=== PATIENT | female | born 2000 | race African-American/Black ===

== ENCOUNTER 2025-01-11 16:28 | Emergency (ER) | payer OTHER, SELFPAY ==
[2025-01-11 16:33] VITALS: BP 121/81; PULSE 78; RESP 18; TEMP 35.9; O2SAT 100; BMI 35.9
--- NOTE | 2025-01-11 17:55 | ED.VIS.GI ---
HPI HPI - GI History of Present Illness Chief Complaint: Abd Pain Informant: patient and other ([employer]. Patient speaks Creole) Abdominal Pain/Flank Pain Onset: Month(s) Context: Gradual Onset Timing: Intermittent Quality: Cramping Location: - (Periumbilical.) Current Severity: Mild Maximum Severity: Mild Worsened by: Nothing Relieved by: Nothing Nausea/Vomiting/Emesis GI Symptom: Positive for Nausea and Vomiting Onset: Yesterday Severity: Mild Diarrhea/Melena/Hematochezia GI Symptom: Negative for Diarrhea, Melena or Hematochezia Associated Symptoms Associated Symptoms: Negative for Dysuria, Frequency, Hematuria or Urgency Narrative Narrative: 24-year-old female no primary care physician. Is from [facility]. Denies any past medical or surgical history. G1, P1 Ab0. States she has had periumbilical abdominal pain off and on for 2 months. Nothing specifically brings it on or makes it go away. At times she will take ibuprofen which improves the pain. She has had no weight loss. Denies any dysuria. Intermittent nausea vomiting. No melena. No fever. Recent Illness/Hospitalization: No PFSH PFSH Medical History no medical history no medical history Home Medications ?Medication ?Instructions ?Recorded ?Last Taken ?Type NK 01/11/25 Unknown History Allergy/AdvReac Type Severity Reaction Status Date / Time No Known Allergies Allergy Verified 01/11/25 16:33 Surgical History no surgical history no surgical history Social History Smoking Status: Never smoker ROS ROS ED ROS Narrative Abdominal pain. Nausea vomiting. Constitutional Constitutional ED: Denies chills or fever(s) ENT ENT ED: Denies ear pain Cardiovascular Cardiovascular: Denies chest pain Respiratory/Chest Respiratory/Chest: Denies cough Gastrointestinal Gastrointestinal: Reports abdominal pain, nausea and vomiting; Denies constipation, diarrhea or melena Genitourinary Genitourinary ED: Denies dysuria or hematuria Musculoskeletal Musculoskeletal: Denies arthralgias or back pain Integumentary Denies abscess or Abrasions Neurologic Neurologic: Denies headache(s) Psychiatric Psychiatric: Denies anxiety Endocrine Endocrinology: Denies polydipsia Hematologic/Lymphatic Hematologic/Lymphatic: Denies easy bleeding Allergic/Immunologic Allergic/Immunologic ED: Denies mouth swelling, tongue swelling or urticaria EXAM Physical Exam Narrative Exam Narrative: Well-appearing 24-year-old female. Vital signs are stable afebrile. H EENT exam pupils round reactive light. Moist mucous membranes. Neck nontender no lymphadenopathy. Lungs clear to auscultation bilaterally. Heart regular rhythm rate about 80 no murmur. Chest wall ribs nontender. Abdomen soft nontender, nondistended normal bowel sounds without peritoneal signs. Completely nontender abdomen. She points to the periumbilical area where she is having the discomfort. There is no reproducible pain there anywhere else on the abdomen. No signs of trauma. No hernia or mass. Moving all 4 extremities. Nontender. Normal range of motion. Normal strength. Back nontender. Neurologically she is awake and alert. She is in absolutely no distress. [employer] phone was used to obtain a history. Const Vital Signs: 01/11/25 16:33 01/11/25 18:28 Temperature 96.7 F L Temperature Source Temporal Pulse Rate 78 78 Respiratory Rate 18 18 Blood Pressure 121/81 H 125/76 H Blood Pressure Mean 94 92 Pulse Ox 100 99 Oxygen Delivery Method Room Air Room Air Positive well nourished and well developed; Negative for cachectic, contractures or unkempt General Appearance ED: well developed; Negative for unkempt, cachectic, contractures or pallor Nutritional Appearance: Negative for cachectic HEENT Reports moist mucous membranes normocephalic and atraumatic Eyes PERRL and EOMs intact bilaterally General Eye ED: Negative for pale conjunctiva or scleral icterus Neck no lymphadenopathy, supple and no JVD Resp normal respiratory effort and clear to auscultation bilaterally Cardio regular rhythm, S1 normal heart sound, S2 normal heart sound and no murmurs GI non-tender, non-distended and no masses Inspection: Negative for abdominal distention Palpation: soft; Negative for tender, guarding, rigid, hepatomegaly, splenomegaly, hernia, mass, pulsatile mass or rebound tenderness present Back/Spine no CVA tenderness Extremity full ROM General Extremety ED: Negative for edema or tenderness General Extremity: Negative for edema Neuro CN's II-XII intact bilaterally and moves all extremities Sensorium / Orientation: alert, oriented to person, oriented to place and oriented to time; Negative for orientation impaired Motor Exam: strength 5/5 throughout Psych mental status grossly normal and thought process normal Appearance: Negative for unkempt Mood & Affect: Negative for anxious or tearful Skin no wounds General Skin Exam: Negative for jaundice or pallor Lesions: no lesions Rashes: no rashes Trauma: Negative for abrasion Nails: Negative for discolored MDM MDM MDM Narrative Medical decision making narrative: 24-year-old female 2-month history of abdominal pain. Exam is completely benign. Abdomen is nontender. Screening labs to be obtained. I do not think she needs imaging. Repeat exam at 8:28 PM. Abdomen is benign. I went over her test with her. She will be discharged home with outpatient follow-up. She has a very benign abdominal exam. There is no localizing or significant reproducible pain. Outpatient follow-up. She does not need any imaging at this time. History & Record Review Discussion w/independent historian: Patient Additional record(s) reviewed:: No prior records Lab Data Attestation: I reviewed the patient's lab results. Lab results narrative: CBC unremarkable. White count of 5. H&H 12 and 38. Electrolytes show sodium 139. Gap 10. BUN is 7 creatinine 0.6. Glucose 81. Liver enzymes AST slightly elevated at 50. ALT is 61. Serum test is negative. UA shows no nitrites. No signs of infection. No white or red cells. No bacteria. Labs: Laboratory Results - last 24 hr 01/11/25 18:00 WBC 5.4 RBC 4.43 Hgb 12.8 Hct 38.6 MCV 87.1 MCH 28.9 MCHC 33.2 RDW Std Deviation 45.5 H RDW Coeff of Lazaro 14.3 Plt Count 251 MPV 11.4 Immature Gran % (Auto) 0.400 Neut % (Auto) 43.4 L Lymph % (Auto) 44.5 H [place]ven % (Auto) 8.7 Eos % (Auto) 2.6 Baso % (Auto) 0.4 Absolute Neuts (auto) 2.4 Absolute Lymphs (auto) 2.41 Nucleated RBC % 0 Sodium 139 Potassium 3.7 Chloride 104 Carbon Dioxide 25.5 Anion Gap 10 BUN 7 Creatinine 0.60 L Estim Creat Clear Calc 178.86 Est GFR (MDRD) Non-Af 130 BUN/Creatinine Ratio 11.8 Glucose 81 Calcium 9.6 Total Bilirubin 0.76 AST 50 H ALT 61 H Alkaline Phosphatase 98 Total Protein 7.4 Albumin 4.3 Globulin 3.2 Albumin/Globulin Ratio 1.3 Lipase 21 Serum , Qual NEGATIVE Urine Color Yellow Urine Clarity Clear Urine pH 7.0 Ur Specific [place] 1.010 Urine Protein 30 H Urine Glucose (UA) Normal Urine Ketones Negative Urine Occult Blood Negative Urine Nitrite Negative Urine Bilirubin Negative Urine Urobilinogen 1 H Ur Leukocyte Esterase 25 H Urine RBC 0-5 SEEN Urine WBC 0-5 SEEN Ur Squamous Epith Cells 5-10 SEEN Urine Bacteria 0 SEEN Urine Mucus 0 SEEN Discharge Plan Triage Chief Complaint: Abd Pain ED Provider: Leland Farah Dx/Rx/DC Orders Clinical Impression: Abdominal pain Instructions: Abdominal Pain Prescriptions: No Action NK Primary Care Provider: Care Physician,No Primary Referrals: Care Physician,No Primary [Primary Care Provider] - Chantelle Ross Janene, H[employer] WORKER-[employer] [[facility]] - As soon as possible Activity Restrictions/Additional Instructions: Follow-up for further evaluation. Your labs tonight are unremarkable. Tylenol for pain. Return if increasing pain, fever, intractable vomiting or feeling worse. Print Language: Ecuad[place] Creole Disposition Disposition: Home, Self Care
[2025-01-11 18:09] LABS: Bacteria 0 SEEN /hpf (None Seen); Mucous, Urine 0 SEEN /hpf (<or=2+)
[2025-01-11 18:12] LABS: Glucose, Dipstick Normal (Normal); Ketone-Dipstick Negative (Negative); Leukocyte Esterase-Dipstick 25 /ul (Negative); Nitrite-Dipstick Negative (Negative); Occult Blood-Urine Negative /ul (Negative); Protein-Dipstick 30 mg/dl (Negative); Urine Bilirubin Dipstick Negative (Negative); Urine Urobilinogen 1 mg/dl (Normal)
[2025-01-11 18:15] LABS: Color, Urine Yellow (Yellow); Urine Clarity Clear (Clear)
[2025-01-11 18:28] VITALS: BP 125/76; PULSE 78; RESP 18; O2SAT 99
[2025-01-11 18:47] LABS: ALB/GLOB Ratio 1.3 RATIO (0.9-2.4); AST(SGOT) 50 U/L (<=31); Alanine Aminotransfer ALT/SGPT 61 U/L (<=34); Albumin, Serum 4.3 g/dL (3.5-5.0); Alkaline Phosphatase 98 U/L (35-104); Anion Gap 10 (5-15); BUN 7 mg/dL (4-19); BUN/Creat Ratio 11.8 RATIO (10-20); Calcium,Total 9.6 mg/dL (7.6-11.0); Carbon Dioxide 25.5 mmol/L (21.0-32.0); Chloride 104 mmol/L (98-108); EST Glomerular Filtration Rate 130 (>60); Estimated Creatinine Clearance 178.86 ml/min (50-250); Globulin 3.2 g/dL (2.2-4.2); Glucose 81 mg/dL (70-99); Lipase 21 U/L (13-75); Potassium 3.7 mmol/L (3.3-5.1); Protein, Total 7.4 g/dL (5.9-8.4); Sodium Level 139 mmol/L (133-145); Total Bilirubin 0.76 mg/dL (0.00-1.30)
[2025-01-11 19:02] LABS: Absolute Lymphocyte Count 2.41 X10^3/uL (0.83-4.51); Absolute Neutrophil Count 2.4 X10^3/uL (2.0-7.7); Basophil# 0.02 X10^3/uL; Basophil% 0.4 % (0-1); Eosinophil# 0.14 X10^3/uL; Eosinophils% 2.6 % (0-5); Hematocrit 38.6 % (37-47); Hemoglobin 12.8 g/dL (12.0-15.0); Lymphocyte # 2.41 X10^3/ul (0.83-4.51); Lymphocyte % 44.5 % (19-41); Mean Corp Hgb Conc 33.2 g/dL (32-36); Mean Corpuscular Hgb 28.9 pg (27.0-32.0); Mean Corpuscular Volume 87.1 fL (81-99); Mean Platelet Vol. 11.4 fl (6.2-12.0); Monocyte# 0.47 X10^3/uL; Monocyte% 8.7 % (0-10); NRBC Flagged by Analyzer 0 % (0-5); Neutrophil # 2.36 X10^3/uL (2.7-7.7); Neutrophil % 43.4 % (47-70); Platelet Count 251 K/mm3 (150-450); RBC Distribution Width CV 14.3 % (11.6-14.6); RBC Distribution Width SD 45.5 fl (35.1-43.9); Red Blood Count 4.43 M/mm3 (4.2-5.4); White Blood Count 5.4 K/mm3 (4.4-11.0)
[2025-01-11 19:10] LABS: Internal QC Validated? YES +Cl - CLEAR BKGD; Pregnancy, Serum, hCG Quali. NEGATIVE Negative; Record Kit Lot#, Serum Preg. 947241
[2025-01-11 20:00] VITALS: BP 103/91; PULSE 82; RESP 18; O2SAT 100
[2025-01-11 20:04] LABS: Red Blood Cells-Urine 0-5 SEEN /hpf (0-5); Squamous Epithelial Cells - UA 5-10 SEEN /hpf (5-10); White Blood Cells 0-5 SEEN /hpf (0-5)
[2025-01-11 20:52] VITALS: BP 103/81; PULSE 72; RESP 16; O2SAT 97
== END 2025-01-11 20:53 | disposition home or self-care (01) ==
PROVIDERS: Emergency Provider Emergency Medicine; Visit Provider Emergency Medicine
DX: R10.33 Periumbilical pain (principal)
CPT/HCPCS: 80053; 81001; 83690; 84703; 85025; 99283; A4216

== ENCOUNTER 2025-01-28 13:40 | Emergency (ER) | payer OTHER, SELFPAY ==
[2025-01-28 13:41] VITALS: BP 131/92; PULSE 76; RESP 16; TEMP 37; O2SAT 100; BMI 36.9
--- OUTSIDE RECORDS SUMMARY | 2025-01-28 14:44 | XMS RPT_ITS | CCD ---
Author Organization [facility] Care Team Providers Care Scratcher Name Role Phone Gagan PHILLIP, Dr. Ha Emergency Provider Care Physician, No Primary Primary Care Provider Unavailable Leland Farah Attending Unavailable Care Physician, No Primary Primary Care Unava ilable Problems Problem Classification Problem Date Documented Da te Episodic/Chronic Abdominal pain (2 sources) Abdominal pain; Translations: [Unspecified abdominal pain] Onset: 01-17-2025 01-11-2025 Episodic Results Test Name Value Interpretation Reference Range Facility Absolute lymphocyte countOrd ered By: Leland Farah on 01-11-2025 Lymphocytes Auto (Unsp spec) [#/Vol] 2.41 10*3/uL 0.83-4.51 [facility] Absolute neutrophil countOrd ered By: Leland Farah on 01-11-2025 Neutrophils (Bld) [#/Vol] 2.4 10*3/uL 2.0-7.7 [facility] Anion gap in Serum or Plasma Ordered By: Leland Farah on 01-11-2025 Anion gap [Moles/Vol] 10 mmol/L 5-15 [facility] Automated blood erythrocyte countOrdered By: Leland Farah on 01-11-2025 RBC (Bld) [#/Vol] 4.43 10*6/uL Normal 4.2-5.4 [facility] Comment on above: Performed By: #### L 700.6800, L500.4050, L501.2450, L100.0100 #### [facility] [address] [place], [place], [id number] Automated blood hematocrit ( percentage)Ordered By: Leland Farah on 01-11-2025 Hematocrit (Bld) [Volume fraction] 38.6 % Normal 37-47 [facility] Comment on above: Performed By: #### L 700.6800, L500.4050, L501.2450, L100.0100 #### [facility] [address] [place], [address] Automated lymphocyte count a s percentage of total leukocytesOrdered By: Leland Farah on 01-11-2025 Lymphocytes/100 WBC Auto (Unsp spec) 44.5 % High 19-41 [facility] BUN/creatinine ratioOrdered By: Leland Farah on 01-11-2025 Urea nitrogen/Creatinine [Mass ratio] 11.8 mg/mg 10-20 [facility] Basophil percentageOrdered B y: Leland Farah on 01-11-2025 Basophils/100 WBC (Bld) 0.4 % Normal 0-1 [facility] Comment on above: Performed By: #### L 700.6800, L500.4050, L501.2450, L100.0100 #### [facility] [address] [place], [place], [id number] Bilirubin Test strip Ql (U)O rdered By: Leland Farah on 01-11-2025 Bilirubin Ql (U) Negative Negative [facility] Bilirubin, totalOrdered By: Leland Farah on 01-11-2025 Bilirubin [Mass/Vol] 0.76 mg/dL Normal 0.00-1.30 [facility] Comment on above: Performed By: #### L 700.6800, L500.4050, L501.2450, L100.0100 #### [facility] [address] [place], [address] CBC W/Diff, Automatedon 06-0 Absolute Lymph 2.41 X10 3/uL Normal 0.83-4.51 [facility] Comment on above: Performed By: #### L 700.6800, L500.4050, L501.2450, L100.0100 #### [facility] [address] [place], [address] Absolute Neut 2.4 X10 3/uL Normal 2.0-7.7 [facility] Comment on above: Performed By: #### L 700.6800, L500.4050, L501.2450, L100.0100 #### [facility] [address] [place], [address] IG% 0.400 Normal 0.0-0.9 [facility] Comment on above: Result Comment: IG% - Immature Granulocytes (promyelocytes, myelocytes and metamyelocytes) > 1% indicates that a LEFT SHIFT is Present. Performed By: #### L 700.6800, L500.4050, L501.2450, L100.0100 #### [facility] [address] [place], [address] Lymphocytes/100 WBC (Bld) 44.5 % High 19-41 [facility] Comment on above: Performed By: #### L 700.6800, L500.4050, L501.2450, L100.0100 #### [facility] [address] [place], [address] Nucleated RBC (Bld) [#/Vol] 0 10*3/uL Normal 0-5 [facility] Comment on above: Performed By: #### L 700.6800, L500.4050, L501.2450, L100.0100 #### [facility] [address] [place], [address] RDW SD 45.5 fl High 35.1-43.9 [facility] Comment on above: Performed By: #### L 700.6800, L500.4050, L501.2450, L100.0100 #### [facility] [address] [place], [address] Carbon dioxide, total [Moles /volume] in Central venous bloodOrdered By: Leland Farah on 01-11-2025 CO2 [Moles/Vol] 25.5 mmol/L Normal 21.0-32.0 [facility] Comment on above: Performed By: #### L 700.6800, L500.4050, L501.2450, L100.0100 #### [facility] [address] [place], [address] Chloride assayOrdered By: Marlo Farah on 01-11-2025 Chloride [Moles/Vol] 104 mmol/L Normal 98-108 [facility] Comment on above: Performed By: #### L 700.6800, L500.4050, L501.2450, L100.0100 #### [facility] [address] [place], [address] Comprehensive Metabolic Prof ilon 01-11-2025 ALK PHOS 98 U/L Normal 35-104 [facility] Comment on above: Performed By: #### L 700.6800, L500.4050, L501.2450, L100.0100 #### [facility] [address] [place], [address] BUN/CRE 11.8 RATIO Normal 10-20 [facility] Comment on above: Performed By: #### L 700.6800, L500.4050, L501.2450, L100.0100 #### [facility] [address] [place], [address] ECRCL 178.86 ml/min Normal 50-250 [facility] Comment on above: Performed By: #### L 700.6800, L500.4050, L501.2450, L100.0100 #### [facility] [address] [place], [address] GAP 10 Normal 5-15 [facility] Comment on above: Performed By: #### L 700.6800, L500.4050, L501.2450, L100.0100 #### [facility] [address] [place], [address] Potassium [Moles/Vol] 3.7 mmol/L Normal 3.3-5.1 [facility] Comment on above: Performed By: #### L 700.6800, L500.4050, L501.2450, L100.0100 #### [facility] [address] [place], [address] T PROT 7.4 g/dL Normal 5.9-8.4 [facility] Comment on above: Performed By: #### L 700.6800, L500.4050, L501.2450, L100.0100 #### [facility] [address] [place], [address] Comprehensive Metabolic Prof ilOrdered By: Leland Farah on 01-11-2025 AST [Catalytic activity/Vol] 50 U/L High <=31 [facility] Comment on above: Performed By: #### L 700.6800, L500.4050, L501.2450, L100.0100 #### [facility] [address] [place], [address] Emergency Department Summary on 01-11-2025 Emergency Department Summary [facility] Medical Records Department [address] [place] [address] Emergency Department Summary 01/11/25 MR#: [id number] Acct: [id number] Name: CROW QUARLES Rep #: [id number] : 2000 24 From: Leland Farah MD PCP: Care Physician,No Primary Status:DEP ER Location: ED HPI HPI - GI History of Present Illness Chief Complaint: Abd Pain Informant: patient and other ([employer]. Patient speaks Creole) Abdominal Pain/Flank Pain Onset: Month(s) Context: Gradual Onset Timing: Intermittent Quality: Cramping Location: - (Periumbilical.) Current Severity: Mild Maximum Severity: Mild Worsened by: Nothing Relieved by: Nothing Nausea/Vomiting/Em esis GI Symptom: Positive for Nausea and Vomiting Onset: Yesterday Severity: Mild Diarrhea/Melena/He matochezia GI Symptom: Negative for Diarrhea, Melena or Hematochezia Associated Symptoms Associated Symptoms: Negative for Dysuria, Frequency, Hematuria or Urgency Narrative Narrative: 24-year-old female no primary care physician. Is from [facility]. Denies any past medical or surgical history. G1, P1 Ab0. States she has had periumbilical abdominal pain off and on for 2 months. Nothing specifically brings it on or makes it go away. At times she will take ibuprofen which improves the pain. She has had no weight loss. Denies any dysuria. Intermittent nausea vomiting. No melena. No fever. Recent Illness/Hospitaliz ation: No PFSH PFSH Medical History no medical history no medical history Home Medications ???Medication ???Instructions ???Recorded ???Last Taken ???Type NK 01/11/25 Unknown History Allergy/AdvReac Type Severity Reaction Status Date / Time No Known Allergies Allergy Verified 01/11/25 16:33 Surgical History no surgical history no surgical history Social History Smoking Status: Never smoker ROS ROS ED ROS Narrative Abdominal pain. Nausea vomiting. Constitutional Constitutional ED: Denies chills or fever(s) ENT ENT ED: Denies ear pain Cardiovascular Cardiovascular: Denies chest pain Respiratory/Chest Respiratory/Chest: Denies cough Gastrointestinal Gastrointestinal: Reports abdominal pain, nausea and vomiting; Denies constipation, diarrhea or melena Genitourinary Genitourinary ED: Denies dysuria or hematuria Musculoskeletal Musculoskeletal: Denies arthralgias or back pain Integumentary Denies abscess or Abrasions Neurologic Neurologic: Denies headache(s) Psychiatric Psychiatric: Denies anxiety Endocrine Endocrinology: Denies polydipsia Hematologic/Lympha tic Hematologic/Lympha tic: Denies easy bleeding Allergic/Immunolog ic Allergic/Immunolog ic ED: Denies mouth swelling, tongue swelling or urticaria EXAM Physical Exam Narrative Exam Narrative: Well-appearing 24-year-old female. Vital signs are stable afebrile. H EENT exam pupils round reactive light. Moist mucous membranes. Neck nontender no lymphadenopathy. Lungs clear to auscultation bilaterally. Heart regular rhythm rate about 80 no murmur. Chest wall ribs nontender. Abdomen soft nontender, nondistended normal bowel sounds without peritoneal signs. Completely nontender abdomen. She points to the periumbilical area where she is having the discomfort. There is no reproducible pain there anywhere else on the abdomen. No signs of trauma. No hernia or mass. Moving all 4 extremities. Nontender. Normal range of motion. Normal strength. Back nontender. Neurologically she is awake and alert. She is in absolutely no distress. [employer] phone was used to obtain a history. Const Vital Signs: 01/11/25 16:33 01/11/25 18:28 Temperature 96.7 F L Temperature Source Temporal Pulse Rate 78 78 Respiratory Rate 18 18 Blood Pressure 121/81 H 125/76 H Blood Pressure Mean 94 92 Pulse Ox 100 99 Oxygen Delivery Method Room Air Room Air Positive well nourished and well developed; Negative for cachectic, contractures or unkempt General Appearance ED: well developed; Negative for unkempt, cachectic, contractures or pallor Nutritional Appearance: Negative for cachectic HEENT Reports moist mucous membranes normocephalic and atraumatic Eyes PERRL and EOMs intact bilaterally General Eye ED: Negative for pale conjunctiva or scleral icterus Neck no lymphadenopathy, supple and no JVD Resp normal respiratory effort and clear to auscultation bilaterally Cardio regular rhythm, S1 normal heart sound, S2 normal heart sound and no murmurs GI non-tender, non-distended and no masses Inspection: Negative for abdominal distention Palpation: soft; Negative for tender, guarding, rigid, hepatomegaly, splenomegaly, hernia, mass, pulsatile mass or rebound tenderness present Back/Spine no CVA tenderness Extremity ful (more content not included)... Normal [facility] Eosinophil percentageOrdered By: Leland Farah on 01-11-2025 Eosinophils/100 WBC (Bld) 2.6 % Normal 0-5 [facility] Comment on above: Performed By: #### L 700.6800, L500.4050, L501.2450, L100.0100 #### [facility] [place], [address] Erythrocyte distribution wid th ratioOrdered By: Leland Farah on 01-11-2025 Erythrocyte distribution width (RBC) [Ratio] 14.3 % Normal 11.6-14.6 [facility] Comment on above: Performed By: #### L 700.6800, L500.4050, L501.2450, L100.0100 #### [facility] [address], [place], [id number] Erythrocyte distribution wid th standard deviationOrdered By: Leland Farah on 01-11-2025 Erythrocyte distribution width (RBC) [Ratio] 45.5 fl High 35.1-43.9 [facility] Glomerular filtration rate ( GFR) estimation/1.73 sq m using serum, plasma, or whole bOrdered By: Leland Farah on 01-11-2025 GFR/1.73 sq M.predicted among non-blacks MDRD (S/P/Bld) [Vol rate/Area] 130 mL/min/{1.73_m2} Normal >60 [facility] Comment on above: mL/min/1.73m2 CKD-EP I Creatinine Equation (2020) Result Comment: mL/m in/1.73m2 CKD-EPI Creatinine Equation (2020) Performed By: #### L 700.6800, L500.4050, L501.2450, L100.0100 #### [facility] [address] [place], [address] Hemoglobin measurementOrdere d By: Leland Farah on 01-11-2025 Hemoglobin (Bld) [Mass/Vol] 12.8 g/dL Normal 12.0-15.0 [facility] Comment on above: Performed By: #### L 700.6800, L500.4050, L501.2450, L100.0100 #### [facility] [address] [place], [address] Immature granulocytes/100 WB C Auto (Bld)Ordered By: Leland Farah on 01-11-2025 Immature granulocytes/100 WBC (Bld) 0.400 % 0.0-0.9 [facility] Comment on above: IG% - Immature Granu locytes (promyelocytes, myelocytes and metamyelocytes) > 1% indicates that a LEFT SHIFT is Present. Ketones Test strip Ql (U)Ord ered By: Leland Farah on 01-11-2025 Ketones Ql (U) Negative Negative [facility] Lipase measurementOrdered By : Leland Farah on 01-11-2025 Lipase [Catalytic activity/Vol] 21 U/L Normal 13-75 [facility] Comment on above: Please note:LIPASE r evised reference range effective 22. New Lipase methodology. Expected to produce lower values than the previous assay method. NEW Reference Range: 13 - 75 U/L Result Comment: Leanna peterson note: LIPASE revised reference range effective 22. New Lipase methodology. Expected to produce lower values than the previous assay method. NEW Reference Range: 13 - 75 U/L Performed By: #### L 700.6800, L500.4050, L501.2450, L100.0100 #### [facility] [address] [place], [address] MCV (mean corpuscular volume ) determinationOrdered By: Leland Farah on 01-11-2025 MCV (RBC) [Entitic vol] 87.1 fL Normal 81-99 [facility] Comment on above: Performed By: #### L 700.6800, L500.4050, L501.2450, L100.0100 #### [facility] [address] [place], [address] Mean corpuscular hemoglobin (MCH) determinationOrdered By: Leland Farah on 01-11-2025 MCH (RBC) [Entitic mass] 28.9 pg Normal 27.0-32.0 [facility] Comment on above: Performed By: #### L 700.6800, L500.4050, L501.2450, L100.0100 #### [facility] [address] [place], [address] Mean corpuscular hemoglobin concentration (MCHC) determinationOrdered By: Leland Farah on 01-11-2025 MCHC (RBC) [Mass/Vol] 33.2 g/dL Normal 32-36 [facility] Comment on above: Performed By: #### L 700.6800, L500.4050, L501.2450, L100.0100 #### [facility] [address] [place], [address] Mean platelet volume determi nationOrdered By: Leland Farah on 01-11-2025 Platelet mean volume (Bld) [Entitic vol] 11.4 fL Normal 6.2-12.0 [facility] Comment on above: Performed By: #### L 700.6800, L500.4050, L501.2450, L100.0100 #### [facility] [address] [place], [address] Microscopic analysis of urin e for red blood cells (RBC)Ordered By: Leland Farah on 01-11-2025 Microscopic analysis of urine for red blood cells (RBC) 0-5 SEEN /hpf 0-5 [facility] Monocyte percentageOrdered B y: Leland Farah on 01-11-2025 Monocytes/100 WBC (Bld) 8.7 % Normal 0-10 [facility] Comment on above: Performed By: #### L 700.6800, L500.4050, L501.2450, L100.0100 #### [facility] [address] [place], [place], [id number] Mucus LM Ql (Urine sed)Order ed By: Leland Farah on 01-11-2025 Mucus Ql (Urine sed) 0 SEEN /hpf [facility] Neutrophil percentageOrdered By: Leland Farah on 01-11-2025 Neutrophils/100 WBC (Bld) 43.4 % Low 47-70 [facility] Comment on above: Performed By: #### L 700.6800, L500.4050, L501.2450, L100.0100 #### [facility] [address] [place], [address] Nitrite Test strip Ql (U)Ord ered By: Leland Farah on 01-11-2025 Nitrite Ql (U) Negative Negative [facility] Nucleated red blood cell per centageOrdered By: Leland Farah on 01-11-2025 Nucleated RBC/100 WBC (Bld) [Ratio] 0 % 0-5 [facility] Platelet countOrdered By: Marlo Farah on 01-11-2025 Platelets (Bld) [#/Vol] 251 10*3/uL Normal 150-450 [facility] Comment on above: Performed By: #### L 700.6800, L500.4050, L501.2450, L100.0100 #### [facility] [address] [place], [address] Potassium measurement (mass/ volume)Ordered By: Leland Farah on 01-11-2025 Potassium (Unsp spec) [Mass/Vol] 3.7 mmol/L 3.3-5.1 [facility] ,Serum,hCG Quali.on 01-11-2025 HCG, SERUM QUAL Negative Normal [facility] Comment on above: Performed By: #### L 700.6800, L500.4050, L501.2450, L100.0100 #### [facility] [address] [place], [address] Protein Test strip Ql (U)Ord ered By: Leland Farah on 01-11-2025 Protein Ql (U) 30 mg/dl High Negative [facility] Serum beta-hCG test, qualita tiveOrdered By: Leland Farah on 01-11-2025 Beta HCG ( test) Ql Negative [facility] Serum creatinine measurement (mass/volume)Ordered By: Leland Farah on 01-11-2025 Creatinine [Mass/Vol] 0.60 mg/dL Low 0.70-1.20 [facility] Comment on above: Performed By: #### L 700.6800, L500.4050, L501.2450, L100.0100 #### [facility] [address] [place], [address] Serum globulin measurementOr dered By: Leland Farah on 01-11-2025 Globulin (S) [Mass/Vol] 3.2 g/dL Normal 2.2-4.2 [facility] Comment on above: Performed By: #### L 700.6800, L500.4050, L501.2450, L100.0100 #### [facility] [address] [place], [address] Serum glucose measurement (m ass/volume)Ordered By: Leland Farah on 01-11-2025 Glucose [Mass/Vol] 81 mg/dL Normal 70-99 [facility] Comment on above: Performed By: #### L 700.6800, L500.4050, L501.2450, L100.0100 #### [facility] [address] [place], [address] Serum or plasma alanine martines otransferase (ALT) measurementOrdered By: Leland Farah on 01-11-2025 ALT [Catalytic activity/Vol] 61 U/L High <=34 [facility] Comment on above: Performed By: #### L 700.6800, L500.4050, L501.2450, L100.0100 #### [facility] [address] [place], [address] Serum or plasma albumin travis urement (mass/volume)Ordered By: Leland Farah on 01-11-2025 Albumin [Mass/Vol] 4.3 g/dL Normal 3.5-5.0 [facility] Comment on above: Performed By: #### L 700.6800, L500.4050, L501.2450, L100.0100 #### [facility] [address] [place], [address] Serum or plasma albumin/glob ulin mass ratioOrdered By: Leland Farah on 01-11-2025 Albumin/Globulin [Mass ratio] 1.3 {ratio} Normal 0.9-2.4 [facility] Comment on above: Performed By: #### L 700.6800, L500.4050, L501.2450, L100.0100 #### [facility] [address] [place], [address] Serum or plasma alkaline marko sphatase measurementOrdered By: Leland Farah on 01-11-2025 ALP [Catalytic activity/Vol] 98 U/L 35-104 [facility] Serum or plasma calcium travis urement (mass/volume)Ordered By: Leland Farah on 01-11-2025 Calcium [Mass/Vol] 9.6 mg/dL Normal 7.6-11.0 [facility] Comment on above: Performed By: #### L 700.6800, L500.4050, L501.2450, L100.0100 #### [facility] [address] [place], [address] Serum or plasma urea nitroge n measurement (mass/volume)Ordered By: Leland Farah on 01-11-2025 Urea nitrogen [Mass/Vol] 7 mg/dL Normal 4-19 [facility] Comment on above: Performed By: #### L 700.6800, L500.4050, L501.2450, L100.0100 #### [facility] [address] [place], [address] Sodium levelOrdered By: Leland Farah on 01-11-2025 Sodium [Moles/Vol] 139 mmol/L Normal 133-145 [facility] Comment on above: Performed By: #### L 700.6800, L500.4050, L501.2450, L100.0100 #### [facility] [address] [place], [address] Squamous epithelial cells de tection in urine sediment by light microscopyOrdered By: Leland Farah on 01-11-2025 Epithelial cells.squamous LM Ql (Urine sed) 5-10 SEEN /hpf 5-10 [facility] Total proteinOrdered By: Ricardo Farah on 01-11-2025 Protein [Mass/Vol] 7.4 g/dL 5.9-8.4 [facility] Urinalysis, Completeon 01-11 EPI,SQUAMOUS 5-10 SEEN Normal 5-10 [facility] Comment on above: Order Comment: CLEAN CATCH Performed By: #### L 400.0001 #### [facility] [address] [place], [address] RBC 0-5 SEEN Normal 0-5 [facility] Comment on above: Order Comment: CLEAN CATCH Performed By: #### L 400.0001 #### [facility] [address] [place], [place], [id number] WBC 0-5 SEEN Normal 0-5 [facility] Comment on above: Order Comment: CLEAN CATCH Performed By: #### L 400.0001 #### [facility] [address] [place], [address] BACTERIA 0 SEEN Normal None Seen [facility] Comment on above: Order Comment: CLEAN CATCH Performed By: #### L 400.0001 #### [facility] [address] [place], [place], [id number] Mucus Ql (Urine sed) 0 SEEN Normal [facility] Comment on above: Order Comment: CLEAN CATCH Performed By: #### L 400.0001 #### [facility] [address] [place], [place], [id number] Urine clarityOrdered By: Ricardo Farah on 01-11-2025 Clarity (U) Clear Clear [facility] Urine color determinationOrd ered By: Leland Farah on 01-11-2025 Color (U) Yellow Yellow [facility] Urine glucose detectionOrder ed By: Leland Farah on 01-11-2025 Glucose Ql (U) Normal mg/dl Normal [facility] Urine leukocyte esterase det ection by dipstickOrdered By: Leland Farah on 01-11-2025 Leukocyte esterase Test strip Ql (U) 25 /ul High Negative [facility] Urine pHOrdered By: Leland rollins on 01-11-2025 pH (U) 7.0 [pH] 5.0 - 8.0 [facility] Urine sediment bacteria coun t by microscopy (number/high power field)Ordered By: Leland Farah on 01-11-2025 Bacteria LM.HPF (Urine sed) [#/Area] 0 /[HPF] None Seen [facility] Urine specific gravity measu rementOrdered By: Leland Farah on 01-11-2025 Specific gravity (U) [Rel density] 1.010 1.002-1.030 [facility] Urine urobilinogen measureme ntOrdered By: Leland Farah on 01-11-2025 Urobilinogen Ql (U) 1 mg/dl High Normal [facility] White blood cell (WBC) count Ordered By: Leland Farah on 01-11-2025 WBC (Bld) [#/Vol] 5.4 10*3/uL Normal 4.4-11.0 [facility] Comment on above: Performed By: #### L 700.6800, L500.4050, L501.2450, L100.0100 #### [facility] [address] [place], [address] White blood cell countOrdere d By: Leland Farah on 01-11-2025 White blood cell count 0-5 SEEN /hpf 0-5 [facility] Vital Signs Date Time Vital Sign Value Performing Clinician Faci lity 01-11-2025 20:52-0400 Diastolic blood pressure 81 mm[Hg] Dr. Leland Farah MD Work Phone: [phone] [place] [address] 01-11-2025 20:52-0400 Heart rate 72 /min Dr. Leland Farah MD Work Phone: [phone] [place] [address] 01-11-2025 20:52-0400 Respiratory rate 16 /min Dr. Leland Farah MD Work Phone: [phone] [place] [address] 01-11-2025 20:52-0400 SaO2% (BldA) [Mass fraction] 97 % Dr. Leland Farah MD Work Phone: [facility] 01-11-2025 20:52-0400 Systolic blood pressure 103 mm[Hg] Dr. Leland Farah MD Work Phone: [facility] 01-11-2025 16:33-0400 Body height [address] Leland Farah MD Work Phone: [phone] [place] [address] 01-11-2025 16:33-0400 Body mass index (BMI) [Ratio] 35.9 kg/m2 Dr. Leland Farah MD Work Phone: [phone] [place] [address] 01-11-2025 16:33-0400 Body temperature 96.7 [degF] Dr. Leland Farah MD Work Phone: [facility] 01-11-2025 16:33-0400 Body weight 103.[address] Leland Farah MD Work Phone: [facility] Encounters Encounter Date Encounter Type Care Provider Facility Start: 01-11-2025 End: 01-11-2025 Emergency department patient visit Dr. Leland Farah MD Work Phone: -Emergency Department Work Phone: Procedures Date Procedure Procedure Detail Performing Clinician Start: 01-11-[address] Leland Farah MD Work Phone: Start: 01-11-2025 Urnls dip stick/tabl et reagent auto microscopy Dr. Leland Farah MD Work Phone: Plan of Treatment Date Care Activity Detail Author Start: 01-11-2025 [facility] Patient Education Abdominal Pain [facility] Work Phone: Patient referral [facility] Work Phone: Payers Date Payer Category Payer Self-pay 2025 Unknown [id number] Unknown [id number] Social History Date Type Detail Facility Start: [facility]-11-[facility] Start: 2000 Sex Assigned At Female [facility] Evaluation note Note Date & Type Note Facility Evaluation note No assessment information availa ble [facility] Work Phone: Hospital Discharge instructions Note Date & Type Note Facility Hospital Discharge instructions Additional Instructions Follow-up for further evaluation. Your labs tonight are unremarkable. Tylenol for pain. Return if increasing pain, fever, intractable vomiting or feeling worse. [facility] Work Phone: Reason for referral (narrative) Note Date & Type Note Facility Reason for referral (narrative) No reason for referral information available [facility] Work Phone: Chief Complaint and Reason for Visit Chief Complaint Admit Date ABD PAIN January 11, 2025 4:28p m Advance Directives No Advanced Directives Records Found Advance Directive Response Recorded Date/ Time Do you have a Healthcare Power of Resource Manager Forester? No January 11, 2025 5:46pm Summary Purpose Family History No Family History Records Found Additional Source Comments Care Teams (unrecognized sec tion and content) Team Status: Active Member Role Status Dates No Primary Care Physician Primary Care Provider Active Team Status: Inactive Member Role Status Dates Dr. Leland Farah MD Emergency Provider Active S tart: January 11, 2025 End: January 11, 2025 No Primary Care Physician Primary Care Provider Active Start: January 11, 2025 End: January 11, 2025 Goals (unrecognized section and content) Goals may be documented in a n alternate section INFORMATION SOURCE (unrecogn ized section and content) DATE CREATED AUTHOR 01/19/2025 [facility] FOR RECORDS PERTAINING TO PATIENTS WHO ARE OR HAVE BEEN ENROLLED IN A CHEMICAL DEPENDENCY/SUBSTANCEABUSE PROGRAM, SOME INFORMATION MAY BE OMITTED. This clinical summary was aggregated from multiple sources. Caution should be exercised in using it in the provision of clinical care. This summary normalizes information from multiple sources, and as a consequence, information in this document may materially change the coding, format and clinical context of patient data. In addition, data may be omitted in some cases. CLINICAL DECISIONS SHOULD BE BASED ON THE PRIMARY CLINICAL RECORDS. [employer] provides no warranty or guarantee of the accuracy or completeness of information in this document.
--- NOTE | 2025-01-28 14:57 | EX.ED.DYSGE1 ---
HPI History of Present Illness Chief Complaint: Edema Detail of Chief Complaint: Left-sided facial pain and swelling Informant: patient Onset/Context/Timing Onset: Today Context: Sudden Onset Timing: Continuous Quality: Pain Location: Left maxillary region Current Severity: Mild Maximum Severity: Moderate Worsened by: Nothing specific Relieved by: Nothing Associated Symptoms Associated Symptoms: No fever, chills night sweats. Narrative Narrative: Patient is a 24-year-old female who does not speak Italian. Nurse Substance Abuse service was used. Patient had dental pain for several days. She now complains of pain and swelling of her face. She denies fever, chills night sweats. She denies history of SBE, rheumatic fever, heart murmur or mitral valve prolapse. She denies skin lesions. She is on no blood pressure medication. She is able to swallow. There is no change in voice. Prior similar symptoms: No Recent Illness/Hospitalization: No PFSH PFSH Home Medications ?Medication ?Instructions ?Recorded ?Last Taken ?Type hydrocodone-acetaminophen 5-325mg 1 tab PO Q6H PRN PRN Pain 2 days 01/28/25 Unknown Rx 5mg-325mg #8 TABLETS ibuprofen 200 mg tablet (Advil) 400 mg PO Q6H PRN pain 01/28/25 01/28/25 History naproxen 500 mg tablet 500 mg PO BID #14 tabs 01/28/25 Unknown Rx penicillin V potassium 500 mg 500 mg PO 4X/DAY #40 tabs 01/28/25 Unknown Rx tablet Allergy/AdvReac Type Severity Reaction Status Date / Time No Known Allergies Allergy Verified 01/28/25 13:41 Social History Smoking Status: Never smoker ROS ROS ED Constitutional Constitutional ED: Denies chills, fever(s), subjective or sweats Eyes Eyes: Denies blurry vision, change in vision or diplopia ENT ENT ED: Reports other Details: Detailed HPI narrative. No trismus. No drooling. No dysphonia. ; Denies ear pain, rhinorrhea or sore throat Cardiovascular Cardiovascular: Denies chest pain or palpitations Respiratory/Chest Respiratory/Chest: Denies cough or dyspnea Gastrointestinal Gastrointestinal: Denies nausea or vomiting Allergic/Immunologic Allergic/Immunologic ED: Reports mouth swelling and other Details: Patient has swelling of the left upper lip. ; Denies tongue swelling or urticaria EXAM Physical Exam Const Vital Signs: 01/28/25 13:41 01/28/25 14:37 Temperature 98.6 F Temperature Source Oral Pulse Rate 76 Respiratory Rate 16 Respiratory Effort Normal Non-Labored Respiratory Pattern Normal Blood Pressure 131/92 H Blood Pressure Mean 105 Pulse Ox 100 Oxygen Delivery Method Room Air Positive well nourished and well developed General Appearance ED: well developed and NAD HEENT Reports moist mucous membranes HEENT Narrative: Posterior pharynx is normal. Teeth appear unremarkable. Patient does have dental pain with tapping. There is facial swelling with mild cellulitis. There is no trismus. There is no dysphonia. Eyes PERRL and EOMs intact bilaterally General Eye ED: Negative for pale conjunctiva or scleral icterus Neck no lymphadenopathy, supple and no JVD Resp normal respiratory effort and clear to auscultation bilaterally Cardio regular rate, regular rhythm, S1 normal heart sound, S2 normal heart sound and no murmurs Neuro oriented x3 and CN's II-XII intact bilaterally Sensorium / Orientation: alert Psych mental status grossly normal Skin no rashes or lesions noted, no wounds and skin turgor normal MDM MDM MDM Narrative Medical decision making narrative: Patient has a dental abscess. Will treat with antibiotics and pain medicine. She was given the dental referral sheet. There is no concern for bacteremia or SBE. Discharge Plan Triage Chief Complaint: Edema ED Provider: Helio Rolon Dx/Rx/DC Orders Clinical Impression: Dental abscess, Pain, dental, Elevated blood-pressure reading without diagnosis of hypertension Instructions: ED Dental Abscess Prescriptions: New hydrocodone-acetaminophen 5-325 mg tablet 1 tab PO Q6H PRN PRN (Reason: Pain) 2 Days Qty: 8 0RF penicillin V potassium 500 mg tablet 500 mg PO 4X/DAY Qty: 40 0RF naproxen 500 mg tablet 500 mg PO BID Qty: 14 0RF No Action ibuprofen [Advil] 200 mg tablet 400 mg PO Q6H PRN (Reason: pain) Primary Care Provider: Care Physician,No Primary Referrals: Care Physician,No Primary [Primary Care Provider] - Dentist,Your [STAFF PHYSICIAN] - 3-5 Days Print Language: South Korean Creole Disposition Disposition: Home, Self Care
== END 2025-01-28 15:36 | disposition home or self-care (01) ==
PROVIDERS: Emergency Provider Emergency Medicine; Visit Provider Emergency Medicine
DX: K04.7 Periapical abscess without sinus (principal); R03.0 Elevated blood-pressure reading, without diagnosis of hypertension
CPT/HCPCS: 99283